=== PATIENT | male | born 1980 | race Caucasian/White ===

== ENCOUNTER 2022-09-14 03:25 | Emergency (ER) | payer BC, SELFPAY ==
--- NOTE | ~2022-09-14 | XR_ITS ---
Portable chest x-ray Comparison: None Clinical History: Chest pain Findings: Lungs are clear, without focal consolidation or pleural effusion. Mild prominence of the l eft hilum is probably related to vascular structures. Cardiomediastinal silhouette is otherwise unrem arkable. Bones and soft tissues are unremarkable. Impression: Mildly prominent left hilum, likely related to vascular structures. CT could be performed to further assess for any possibility of hilar mass, though this is felt to be less likely. Clear lungs otherwise. Reviewed, dictated and finalized at location M. Impression: Mildly prominent left hilum, likely related to vascular structures. CT could be performed to further assess for any possibility of hilar mass, though this is felt to be less likely. Clear lungs otherwise.
[2022-09-14 03:28] VITALS: BP 154/106; PULSE 100; RESP 20; O2SAT 95
--- NOTE | 2022-09-14 03:28 | ED.ABDPAIN ---
HPI - Abdominal Pain General Chief Complaint: Abdominal Pain Stated Complaint: side pain Time Seen by Provider: 09/14/22 03:28 Related Data Home Medications Medication Instructions Recorded Confirmed No Home Medications 09/14/22 09/14/22 Discharge Plan Discharge Prescriptions: No Action No Home Medications Follow-up/Referrals: Lisa,MD Meño [Primary Care Provider] -
--- NOTE | 2022-09-14 03:33 | ED.CHESTPAIN ---
HPI - Chest Pain General Chief Complaint: Abdominal Pain Time Seen by Provider: 09/14/22 03:28 Source: patient Mode of arrival: ambulatory Limitations: no limitations History of Present Illness HPI narrative: 42-year-old male, smoker presents with a one-week history of -- left lower chest wall pain which has progressively increased. Left lower chest wall is tender on palpation. Pain is not related to breathing. Patient has been having increased coughing over the past few days. MD complaint: chest pain Onset (ago): day(s) ( Started 7 days ago) Timing of current episode: increasing Prior episodes: Yes Onset: during rest Pain location: left chest Pain radiation: none Severity: severe Quality: sharp Relieving factors: nothing Exacerbating factors: nothing Treatment prior to arrival: none Risk Factors Coronary artery disease risk factors: none Thoracic aortic dissection risk factors: none Related Data Allergies Allergy/AdvReac Type Severity Reaction Status Date / Time No Known Allergies Allergy Verified 09/14/22 03:49 Review of Systems Review of Systems: All systems reviewed & are unremarkable except as noted in HPI and below Constitutional: Constitutional: Reports as per HPI and Reports no additional constitutional complaints Eyes: Eyes: Reports as per HPI and Reports no additional eye complaints ENT: Reports system reviewed and no additional complaints, except as documented and Reports as per HPI Cardiovascular: Cardiovascular: Reports as per HPI, Reports no additional cardiovascular complaints and Reports chest pain Comments: left lower chest wall pain Respiratory: Respiratory: Reports as per HPI and Reports no additional respiratory complaints Gastrointestinal: Gastrointestinal: Reports as per HPI and Reports no additional gastrointestinal complaints Genitourinary: Genitourinary: Reports no additional male genitourinary complaints and Reports as per HPI Musculoskeletal: Musculoskeletal: Reports no additional musculoskeletal complaints and Reports as per HPI Integumentary/Breasts: Skin/Breast: Reports system reviewed and no additional complaints, except as docu and Reports as per HPI Neurologic: Reports system reviewed and no additional complaints, except as documented and Reports as per HPI Psychiatric: Psychiatric: Reports no additional psychiatric complaints and Reports as per HPI Endocrine: Endocrine: Reports no additional endocrine complaints and Reports as per HPI Hematologic/Lymphatic: Hematologic/Lymphatic: Reports no additional hematologic/lymphatic complaints and Reports as per HPI Allergic/Immunologic: Allergic/Immunologic: Reports no additional allergic/immunologic complaints and Reports as per HPI [facility] Past Medical History Medical History (Updated 09/14/22 @ 04:39 by Eliezer Montes MD) Bronchitis Social History Social History (Updated 09/14/22 @ 03:38 by Eliezer Montes MD) Social History: smoker Exam Const: General: ill appearing Nutritional Appearance: well nourished Orientation/consciousness: patient oriented x3 Limitations: no limitations HENMT: Head: normal to inspection Ears: external ears normal Face/Nose/Sinus: Normal external nose present Face and sinus: normal facial exam Mouth: Yes Normal oral and palatal mucosa present Throat: posterior oropharynx normal Eyes: Conjunctivae: conjunctivae normal Pupils: Equal, round and reactive pupils present EOM: EOMs intact bilaterally Direct Ophthalmoscopy: no photophobia Neck: Neck: normal visual inspection, no lymphadenopathy and no meningeal signs Chest: Chest palpation & inspection: normal inspection of the chest Other: tenderness on palpation of left lower chest wall. Resp: Effort & Inspection: normal respiratory effort Auscultation: clear to auscultation bilaterally Cardio: Rate: regular rate Rhythm: regular rhythm GI: GI Palp: Yes Soft to palpation Auscultation: normal bowel sounds
--- NOTE | 2022-09-14 03:34 | ECG_ITS ---
Measurements Intervals [place] Rate: 89 P: 52 CT: 112 QRS: 34 QRSD: 85 T: 51 QT: 343 QTc: 419 Interpretive Statements SINUS RHYTHM WITH SHORT CT INTERVAL NO PREVIOUS ECG AVAILABLE FOR COMPARISON Electronically Signed On 09-14-2022 20:02:25 CDT by Valeri Penn M.D.
[2022-09-14] MEDS: KETOROLAC 30 MG/ML VIAL (*BKC) IM (03:39)
[2022-09-14 03:45] VITALS: BP 144/97; PULSE 98; RESP 18; TEMP 36.6; O2SAT 95
[2022-09-14 04:01] LABS: Basophils Absolute Auto 0.08 K/mm3 (0.00-0.10); Basophils Percent Auto 0.7 % (0.0-1.0); Eosinophils Absolute Auto 0.23 K/mm3 (0.02-0.50); Hematocrit 49.5 % (40.0-54.0); Hemoglobin 17.2 g/dL (14.0-18.0); Immature Granulocyte Absolute 0.05 K/mm3 (0.00-0.00); Immature Granulocyte Percent A 0.4 % (0.0-0.0); Lymphocytes Absolute Auto 2.33 K/mm3 (1.10-4.50); Lymphocytes Percent Auto 19.9 % (18.0-42.0); Mean Corpuscular HGB Conc 34.7 g/dL (32.0-36.0); Mean Corpuscular Hemoglobin 31.2 pg (27.0-31.0); Mean Corpuscular Volume 89.7 fL (78.0-102.0); Mean Platelet Volume 9.3 fl (8.7-11.0); Monocytes Absolute Auto 0.78 K/mm3 (0.10-0.90); Monocytes Percent Auto 6.7 % (2.0-11.0); Neutrophils Absolute Auto 8.2 K/mm3 (1.7-7.2); Neutrophils Percent Auto 70.3 % (50.0-70.0); Platelet Count Result 272 K/mm3 (150-420); Red Blood Count 5.52 M/mm3 (4.70-6.10); Red Cell Distribution Width 12.9 % (11.6-14.4); White Blood Count 11.7 K/mm3 (4.8-10.8)
[2022-09-14 04:15] LABS: INR 0.9; Partial Thromboplastin Time 26.3 SEC (23.90-30.70); Prothrombin Time 10.4 Seconds (9.50-12.10)
[2022-09-14 04:19] LABS: Alanine Aminotransferase 40 U/L (16-63); Albumin Level 3.9 g/dL (3.4-5.0); Alkaline Phosphatase 106 U/L (46-116); Anion Gap 11 mmol/L (8-16); Aspartate Amino Transferase 24 U/L (15-37); Bilirubin,Total 0.9 mg/dL (0.00-1.00); Blood Urea Nitrogen 11 mg/dL (7-18); Calcium 9.3 mg/dL (8.5-10.1); Carbon Dioxide 28 mmol/L (21-32); Chloride 100 mmol/L (98-108); Estimated CRCL calculation 88 ml/min; Estimated Glomerular Filt Rate > 60; Glucose 114 mg/dL (70-99); Lipase 42 U/L (16-77); Osmolality Calculated 288 mOsm/kg (285-295); Potassium 4.4 mmol/L (3.5-5.1); Sodium 139 mmol/L (136-145); Total Protein 7.5 g/dL (6.4-8.2)
[2022-09-14 04:24] LABS: Troponin I < 4.0 ng/L (0.00-60.4)
[2022-09-14 04:45] VITALS: BP 127/94; PULSE 101; RESP 18; TEMP 36.7; O2SAT 96
== END 2022-09-14 04:46 | disposition home or self-care (01) ==
PROVIDERS: Emergency Provider Internal Medicine Critical Care Medicine; PCP Family Medicine
DX: R07.89 Other chest pain (principal)
CPT/HCPCS: 36415; 71045; 80053; 83605; 83690; 84484; 85025; 85380; 85610; 85730; 93005; 96372; 99284; J1885